=== PATIENT | female | born 1995 | race American Indian/Alaskan Native ===

== ENCOUNTER 2018-04-29 03:19 | Emergency (ER) | payer OTHER ==
[2018-04-28 23:25] VITALS: BMI 21.4
--- NOTE | 2018-04-29 05:31 | OBDCSUM ---
Datetime: 04/29/2018 05:20 Discharged to, Provider: Home Follow up at, Provider: in [place] OB Disch Instr Activity: Normal activity; May be up to bathroom; May be up for meals; May Shower Disch Instr Diet: Regular Discharge Time: 04/29/2018 05:15 Follow up in weeks, Provider: MondayMay 02 Disch Referrals: None Discharge Diagnosis Prov Other: UTI
--- NOTE | 2018-04-29 05:32 | OBHP ---
Datetime: 04/29/2018 05:25 IP Adm Impression: , intrauterine IP Admit Plan: Observation/Evaluation; Discharge home Admit Comment, IP Provider: Pt is a @ 27.0 wks with complaints of sharp lower abdominal pain earlier this evening when driving from [place]. No bleeding, no leaking, +FM. Patient reported she felt a bdominal tightness when urinating, no burning or urgency. No antepartum issues no medical problems, p revious cholecystectomy otherwise no surgery. Denies taking any medication or having allergies. Pt wa s brought in ambulance, basice CBC neg, UA shows +blood/ketones/WBC [id number] mod jossy, +accels, no decels. Otherwise no fundal tenderness, VSS TOCO = irritability on the monitor A/P 1. Patient shows the beginning of urine infection. Will start treatment with macrobid bID. Patient has no other signs of labor or chorio 2. Patient instructed to follow up with doctor this week. Labor precautions given Pelvic Type - PN: Adequate Extremities - PN: Normal Abdomen - PN: Normal Back - PN: Normal Breast - PN: Normal Lungs - PN: Normal Heart - PN: Normal Thyroid - PN: Normal Neurologic - PN: Normal HEENT - PN: Normal General - PN: Normal FHR - Baseline A Provider: 150 Contraction Comments Provider: Irritability EGA AdmitDate IP: 27.0 Vital Signs Provider: Reviewed; Within Normal Limits IP Chief Complaint: Uterine contractions NICHD Variability Prov Fetus A: Moderate 6-25bpm Genitourinary Exam: Normal DTRs - PN: Normal
[2018-04-29 10:21] VITALS: BP 123/56; PULSE 65; RESP 16; TEMP 98.3; O2SAT 98
== END 2018-04-29 05:15 | disposition home or self-care (01) ==
LOC: H.EROB2 03:19
DX: O23.42 Unspecified infection of urinary tract in pregnancy, second trimester (principal); Z3A.27 27 weeks gestation of pregnancy